=== PATIENT | male | born 1995 | race Caucasian/White ===

== ENCOUNTER 2016-09-11 11:10 | Emergency (ER) | payer OTHER ==
[2016-09-11 11:15] VITALS: TEMP 97.7; O2SAT 96
--- NOTE | 2016-09-11 13:50 | CPEKG ---
Heart Rate: 46 RR Interval: 1304 P-R Interval: 136 QRSD Interval: 78 QT Interval: 456 QTC Interval: 399 P Hume: 26 QRS Hume: 57 T Wave Hume: 54 EKG Severity - OTHERWISE NORMAL ECG - EKG Impression: SINUS BRADYCARDIA Electronically Signed By: Moustapha Wright 11-Sep-2016 16:13:44
--- NOTE | 2016-09-11 14:58 | EDPHY ---
H & P Stated Complaint: Transitory sharp chest pain w/cough for several months;wants CT Time Seen by Provider: 09/11/16 14:44 HPI/ROS: CHIEF COMPLAINT: Dyspnea, hemoptysis HISTORY OF PRESENT ILLNESS: The patient presents to the ED with a history of chronic dyspnea. The patient's symptoms have been present intermittently since the middle of June. The patient reportedly had a negative chest x-ray performed at that point time. He has been using an albuterol inhaler up to 3 times a day for management of his symptoms. Today the patient woke up with pleuritic chest pain and had an episode of scant hemoptysis x2. The patient reports less than 1 tsp of blood. He denies asymmetric calf pain or swelling. The patient denies additional acute complaints. The patient has no prior history of PE or DVT. The patient denies recent fever or upper respiratory symptoms. The patient did have a history of a sinus surgery complicated by fairly protracted postoperative sinusitis requiring multiple rounds of antibiotics. REVIEW OF SYSTEMS: A comprehensive 10 point review of systems is otherwise negative aside from elements mentioned in the history of present illness. Source: Patient Exam Limitations: No limitations - Personal History Current Tetanus Diphtheria and Acellular Pertussis (TDAP): Yes - Medical/Surgical History Hx Asthma: Yes Other PMH: Torn labrum on R - Social History Smoking Status: Never smoked - Physical Exam Exam: General Appearance: Alert, no distress Eyes: Pupils equal and round no pallor or injection ENT, Mouth: Mucous membranes moist Respiratory: There are no retractions, lungs are clear to auscultation Cardiovascular: Regular rate and rhythm Gastrointestinal: Abdomen is soft and nontender, no masses, bowel sounds normal Neurological: A&O, normal motor function, normal sensory exam, normal cranial nerves Skin: Warm and dry, no rashes Musculoskeletal: Neck is supple nontender Extremities: symmetrical, full range of motion Constitutional: Initial Vital Signs Temperature (C) 36.5 C 09/11/16 11:12 Heart Rate 67 09/11/16 11:12 Respiratory Rate 18 09/11/16 11:12 Blood Pressure 145/86 H 09/11/16 11:12 O2 Sat (%) 96 09/11/16 11:12 O2 Delivery Mode Room Air Allergies/Adverse Reactions: No Known Allergies Allergy (Unverified 09/11/16 11:15) Home Medications: Medication Instructions Recorded Albuterol [Proventil Inhaler HFA 1 - 2 puffs IH Q4H 09/11/16 (*)] Medical Decision Making - Diagnostics Imaging Results: Imaging Impressions Chest X-Ray 09/11/16 14:35 Impression: No acute findings in the chest. ED Course/Re-evaluation: The patient presents to the ED after an episode of mild hemoptysis in the setting of some chronic dyspnea for the past several months. The patient's D- dimer is negative which I feel adequately excludes pulmonary embolism. The patient's chest x-ray demonstrates no evidence of acute disease. He has had no further recurrent hemoptysis today. At this point time I do feel the patient really should follow up with a media marketing specialist for further evaluation of his symptoms. The patient could certainly have a component of chronic bronchitis. He is currently managing his symptoms with albuterol. The patient will be discharged home and instructed to follow up with our on- call media marketing specialist Dr. Haider Cruz. The patient will be discharged home with customary aftercare instructions and return precautions. Differential Diagnosis: Differential diagnosis considered includes asthma, bronchitis, pneumonia, pulmonary embolism, pneumothorax - Data Points Laboratory Results: 09/11/16 09/11/16 14:31 14:31 PT 13.9 SEC SEC (12.0-15.0) INR 1.08 (0.83-1.16) APTT 29.2 SEC SEC (23.0-38.0) D-Dimer 0.36 ug/mLFEU ug/mLFEU (0.00-0.50) Troponin I < 0.012 ng/mL ng/mL (0-0.034) Departure - Departure Disposition: Home, Routine, Self-Care Clinical Impression: Hemoptysis, unspecified Condition: Good Instructions: Chronic Cough (ED) Additional Instructions: 1. Please schedule a follow-up appointment with the media marketing specialist you have been referred to for further evaluation of your symptoms. 2. Your blood testing and chest x-ray are reassuring. There is no evidence of a collapsed lung, pneumonia or blood clot. 3. Should you experience increasing symptoms of bloody cough, experience severe difficulty breathing or other concerns. Referrals: JAY RAMON [Other] - As per Instructions Haider Cruz MD [Medical Doctor] - As per Instructions
[2016-09-11 15:09] LABS: INR 1.08 (0.83-1.16); PROTIME(PATIENT) 13.9 SEC (12.0-15.0)
[2016-09-11 15:10] LABS: APTT 29.2 SEC (23.0-38.0)
[2016-09-11 15:43] VITALS: BP 141/89; PULSE 47; RESP 17
== END 2016-09-11 15:58 | disposition home or self-care (01) ==
DX: R04.2 Hemoptysis (principal); J45.909 Unspecified asthma, uncomplicated